=== PATIENT | male | born 1990 | race American Indian/Alaskan Native ===

== ENCOUNTER 2016-09-27 06:01 | Emergency (ER) | payer OTHER ==
[2016-09-27] MEDS ORDERED: DUONEB *Not for PRN Use IH ONE (06:19)
[2016-09-27 06:23] VITALS: BP 150/95
--- NOTE | 2016-09-27 08:02 | Emergency Department Report ---
ED Asthma HPI - General Chief Complaint: Adult Asthma Stated Complaint: IGNACIO/ASTHMA Time Seen by Provider: 09/27/16 07:38 Source: patient Mode of arrival: Ambulatory Limitations: No Limitations - History of Present Illness Initial Comments: This is a 26-year-old male nontoxic, well nourished in appearance, no acute signs of distress that presents to the ED complaining of wheezing and stated that he is having asthma attack. Patient stated this is a usual asthma type usually gets every 1-2 years. Patient denies chest pain, fever, chills, nausea , vomiting, headache, stiff neck, calf pain, calf tenderness, joint swelling. Patient also stated that he does feel slight short of breath due to his asthma attacks. Patient stated he is out of his albuterol and needs a refill. Patient did also state that he takes nebulizer treatment and took it prior to arrival to the emergency room 2. Patient stated there was treatment has significantly made it feel better but he still wants to be evaluated and refilled his albuterol nebulizer. Patient denies any recent travels, long car rides, or recent hospital stays. Patient denies any allergies. Denies past medical history besides asthma. MD Complaint: "asthma attack" -: Gradual, days(s) (1) Asthma History: childhood onset Severity: moderate Context: none known Associated Symptoms: none. denies: productive cough, dry cough, fever, chest pain, hemoptysis, leg edema, syncope Treatments Prior to Arrival: inhaled bronchodilator (nebulizer) - Related Data Previous Rx's Medication Instructions Recorded Last Taken Type ALBUTEROL Inhaler [ProAir HFA 2 puff IH QID PRN #1 inhalation 09/27/16 Unknown Rx Inhaler] predniSONE [Deltasone] 20 mg PO BID #10 tab 09/27/16 Unknown Rx Allergies Allergy/AdvReac Type Severity Reaction Status Date / Time cheese AdvReac Unknown Verified 09/27/16 06:18 ED Review of Systems ROS: Stated complaint: IGNACIO/ASTHMA Other details as noted in HPI Constitutional: denies: chills, fever Eyes: denies: eye pain, eye discharge, vision change ENT: denies: ear pain, throat pain Respiratory: shortness of breath, wheezing. denies: cough, orthopnea, SOB with exertion, SOB at rest, stridor Cardiovascular: denies: chest pain, palpitations Endocrine: no symptoms reported Gastrointestinal: denies: abdominal pain, nausea, diarrhea Genitourinary: denies: urgency, dysuria Musculoskeletal: denies: back pain, joint swelling, arthralgia Skin: denies: rash, lesions Neurological: denies: headache, weakness, paresthesias Psychiatric: denies: anxiety, depression Hematological/Lymphatic: denies: easy bleeding, easy bruising ED Past Medical Hx - Past Medical History Previous Medical History?: Yes Hx Asthma: Yes - Surgical History Past Surgical History?: No - Social History Smoking Status: Current Every Day Smoker Substance Use Type: None - Medications Home Medications: Home Medications Medication Instructions Recorded Confirmed Last Taken Type ALBUTEROL Inhaler [ProAir HFA 2 puff IH QID PRN #1 inhalation 09/27/16 Unknown Rx Inhaler] predniSONE [Deltasone] 20 mg PO BID #10 tab 09/27/16 Unknown Rx ED Physical Exam - General Limitations: No Limitations General appearance: alert, in no apparent distress - Head Head exam: Present: atraumatic, normocephalic, normal inspection - Eye Eye exam: Present: normal appearance, PERRL, EOMI. Absent: scleral icterus, conjunctival injection, nystagmus, periorbital swelling, periorbital tenderness Pupils: Present: normal accommodation - ENT ENT exam: Present: normal exam, normal orophraynx, mucous membranes moist, TM's normal bilaterally, normal external ear exam - Neck Neck exam: Present: normal inspection, full ROM. Absent: tenderness, meningismus, lymphadenopathy, thyromegaly - Respiratory Respiratory exam: Present: normal lung sounds bilaterally, wheezes (bilateral upper and lower lobes). Absent: respiratory distress, rales, rhonchi, stridor, chest wall tenderness, accessory muscle use, decreased breath sounds, prolonged expiratory - Cardiovascular Cardiovascular Exam: Present: regular rate, normal rhythm, normal heart sounds. Absent: bradycardia, tachycardia, irregular rhythm, systolic murmur, diastolic murmur, rubs, gallop - GI/Abdominal GI/Abdominal exam: Present: soft, normal bowel sounds. Absent: distended, tenderness, guarding, rebound, rigid, diminished bowel sounds - Rectal Rectal exam: Present: deferred - Extremities Exam Extremities exam: Present: normal inspection, full ROM, normal capillary refill. Absent: tenderness, pedal edema, joint swelling, calf tenderness, other (Homans test) - Back Exam Back exam: Present: normal inspection, full ROM. Absent: tenderness, CVA tenderness (R), CVA tenderness (L), muscle spasm, paraspinal tenderness, vertebral tenderness, rash noted - Neurological Exam Neurological exam: Present: alert, oriented X3, CN II-XII intact, normal gait, reflexes normal - Psychiatric Psychiatric exam: Present: normal affect, normal mood - Skin Skin exam: Present: warm, dry, intact, normal color. Absent: rash ED Course Vital Signs 09/27/16 09/27/16 09/27/16 06:18 06:23 06:33 Temperature 98.0 F Pulse Rate 80 Pulse Rate [ 75 82 Anterior Bilateral Throughout] Respiratory 20 Rate Respiratory 20 20 Rate [Anterior Bilateral Throughout] Blood Pressure 150/95 [Right] O2 Sat by Pulse 98 Oximetry - Reevaluation(s) Reevaluation #1: 09/27/16 08:02 Patient able to speak in full sentences with no signs of distress noted. Reevaluation #2: 09/27/16 08:02 Patient stated feels much better and and shortness of breath has subsided prior to treatment of DuoNeb in the ED. ED Medical Decision Making - Medical Decision Making ED course; this is a 26-year-old male that presents with asthma exacerbation 1- patient was examined myself. Prior to my interview patient was treated with DuoNeb. Patient stated he feels much better and shortness of breath has subsided. Patient is able to speak in full sentences with no signs of distress noted. 2- patient received Solu-Medrol 125 mg IM in the ED 3- chest x-ray has been obtained with negative findings as per radiologist. Patient was notified of x-ray findings when the further questions noted by the patient. 4- patient was discharged with albuterol inhaler as well as prednisone for 5 days. Patient was instructed to follow-up with a primary care doctor in 24 hours for a proper treatment of asthma exacerbations or if symptoms worsen such as shortness of breath, increased wheezing, difficulty breathing, chest pain, fever, chills, nausea or vomiting return to emergency room as soon as possible. 5- At time time of discharge, the patient does not seem toxic or ill in appearance. No acute signs of distress noted. Patient agrees to discharge treatment plan of care. No further questions noted by the patient. Critical care attestation.: If time is entered above; I have spent that time in minutes in the direct care of this critically ill patient, excluding procedure time. ED Disposition Clinical Impression: Asthma exacerbation Disposition: - TO HOME OR SELFCARE Is pt being admited?: No Does the pt Need Aspirin: No Condition: Stable Instructions: Albuterol (By breathing), Prednisone (By mouth), Asthma (ED) Additional Instructions: follow-up with a primary care doctor in 24 hours for a proper treatment of asthma exacerbations or if symptoms worsen such as shortness of breath, increased wheezing, difficulty breathing, chest pain, fever, chills, nausea or vomiting return to emergency room as soon as possible. Take full course of prednisone as prescribed. Take albuterol as needed during wheezing/difficulty breathing. Prescriptions: ALBUTEROL Inhaler [ProAir HFA Inhaler] 2 puff IH QID PRN #1 inhalation PRN Reason: Shortness Of Breath predniSONE [Deltasone] 20 mg PO BID #10 tab Referrals: PRIMARY CAREMD [Primary Care Provider] - 24 Hours [facility] [Outside] - 3-5 Days [facility] [Outside] - 3-5 Days GLORIA ARCINIEGA MD [Staff Physician] - 24 Hours Forms: Work/School Release Form(ED)
--- NOTE | 2016-09-27 09:11 | XRay Report ---
Chest 2 views: History: Wheezing. Findings: Normal cardiomediastinal silhouette. Trachea is midline. No consolidation, pneumothorax or pleural effusion. Impression: No acute cardiopulmonary findings.
== END 2016-09-27 09:21 | disposition home or self-care (01) ==
LOC: ED 06:01
DX: J45.901 Unspecified asthma with (acute) exacerbation (principal); F17.200 Nicotine dependence, unspecified, uncomplicated; Z91.011 Allergy to milk products
CPT/HCPCS: 71020; 94640; 96372; 99283; J2930

== ENCOUNTER 2016-10-29 06:20 | Emergency (ER) | payer OTHER ==
[2016-10-29 06:29] VITALS: BP 136/94
[2016-10-29] MEDS ORDERED: DUONEB *Not for PRN Use IH ONE (06:40)
[2016-10-29] MEDS ORDERED: DELTASONE PO ONE (07:33)
--- NOTE | 2016-10-29 07:48 | Emergency Department Report ---
HPI - General Chief Complaint: Adult Asthma Time Seen by Provider: 10/29/16 07:20 - HPI HPI: he is a 26-year-old male with a history of childhood asthmatic on medication presents to ED complaining of asthma flareup. Patient states he was asleep last night when his sister turned on the fan in his room. He states he woke up this morning feeling slight wheezing. Patient states symptoms since it is much resolved at the moment after receiving a breathing treatment. He denies any coughing, shortness of breath, chest pain, fever, dizziness or any other problems. ED Past Medical Hx - Past Medical History Previous Medical History?: Yes Hx Asthma: Yes - Surgical History Past Surgical History?: No - Social History Smoking Status: Never Smoker Substance Use Type: None - Medications Home Medications: Home Medications Medication Instructions Recorded Confirmed Last Taken Type ALBUTEROL Inhaler [ProAir HFA 2 puff IH QID PRN #1 inhalation 09/27/16 Unknown Rx Inhaler] Cetirizine HCl [ZyrTEC] 10 mg PO DAILY #20 capsule 10/29/16 Unknown Rx predniSONE [Deltasone] 20 mg PO DAILY #4 tab 10/29/16 Unknown Rx ED Review of Systems ROS: Stated complaint: IGNACIO Other details as noted in HPI Constitutional: denies: chills, fever Eyes: denies: eye pain, eye discharge, vision change ENT: denies: ear pain, throat pain Respiratory: denies: cough, shortness of breath, wheezing Cardiovascular: denies: chest pain, palpitations Endocrine: no symptoms reported Gastrointestinal: denies: abdominal pain, nausea, diarrhea Genitourinary: denies: urgency, dysuria Musculoskeletal: denies: back pain, joint swelling, arthralgia Skin: denies: rash, lesions Neurological: denies: headache, weakness, paresthesias Psychiatric: denies: anxiety, depression Hematological/Lymphatic: denies: easy bleeding, easy bruising Physical Exam - Physical Exam Vital Signs: Vital Signs 10/29/16 10/29/16 10/29/16 06:20 06:43 06:48 Temperature 98.5 F Pulse Rate 65 Pulse Rate [ 77 82 Posterior Bilateral Throughout] Respiratory 20 Rate Respiratory 18 18 Rate [Posterior Bilateral Throughout] Blood Pressure 136/94 [Right] O2 Sat by Pulse 99 Oximetry Physical Exam: GENERAL: Alert and oriented x3, no apparent distress, Normal Gait, atraumatic. HEAD: Head is normocephalic and a-traumatic. EYES: Extra ocular muscles are intact. Pupils are equal, round, and reactive to light and accommodation. NOSE: Nose symetrical, Nontender,Nares appeared normal. MOUTH:Mouth is well hydrated and without lesions. Tonsils nonerythematous or swollen, Uvula midline, Tongue not elevated. Mucous membranes are moist. Posterior pharynx clear, no exudate or lesions. Patent airways. NECK: Supple. Non edematous, No carotid bruits. No lymphadenopathy or thyromegaly. No C-spine tenderness LUNGS: Symetrical with respiration, No wheezing, no rales or crackles, CTAB. No use of accessory muscles HEART: S1, S2 present, regular rate and rhythm without murmur, no rubs, no gallops. Non tender to palpation ABDOMEN: No organomegaly was noted,Positive bowel sounds, soft, and non- distended. . Nontender to palpation on all Quadrants, NO CVA tenderness. SKIN: Warm and dry, No lesions, No ulceration or induration present. ED Course Vital Signs 10/29/16 10/29/16 10/29/16 06:20 06:43 06:48 Temperature 98.5 F Pulse Rate 65 Pulse Rate [ 77 82 Posterior Bilateral Throughout] Respiratory 20 Rate Respiratory 18 18 Rate [Posterior Bilateral Throughout] Blood Pressure 136/94 [Right] O2 Sat by Pulse 99 Oximetry ED Medical Decision Making - Medical Decision Making 26-year-old male presented as was observation. ED course: Patient received breathing treatment and prednisone 60 mg in ED. Discussed with patient the breast, follow-up with primary care physician. Discussed daily Claritin or Zyrtec medication to prevent asthma flareup Vital signs are normal patient is in no acute distress or respiratory distress. he is alert and oriented 3 states understands instructions given Critical care attestation.: If time is entered above; I have spent that time in minutes in the direct care of this critically ill patient, excluding procedure time. ED Disposition Clinical Impression: Asthma attack Disposition: DC-01 TO HOME OR SELFCARE Is pt being admited?: No Does the pt Need Aspirin: No Condition: Stable Instructions: Asthma (ED) Additional Instructions: Taken medications as prescribed If worsening symptoms. Return to ED. Prescriptions: Cetirizine HCl [ZyrTEC] 10 mg PO DAILY #20 capsule predniSONE [Deltasone] 20 mg PO DAILY #4 tab Referrals: PRIMARY CARE, [Primary Care Provider] - 3-5 Days ANUPAMA BELL MD [Referring] - 3-5 Days REID BOTELLO DO [Staff Physician] - 3-5 Days VAHE ARAMBULA MD [Staff Physician] - 3-5 Days AIME OATES MD [Staff Physician] - 3-5 Days ROCIO BISHOP MD [Staff Physician] - 3-5 Days [facility] [Outside] - 3-5 Days Forms: Work/School Release Form(ED) Time of Disposition: 07:53
== END 2016-10-29 08:16 | disposition home or self-care (01) ==
LOC: ED 06:20
DX: J45.909 Unspecified asthma, uncomplicated (principal)
CPT/HCPCS: 94640; 99282; J7512